=== PATIENT | male | born 1940 ===

== ENCOUNTER 2019-03-05 05:49 | Day surgery (SDC) | payer OTHER ==
[~2019-03-05 05:49] MED LIST: CLONAZEPAM0.5 MG/TAB PO; ISOSORBIDE DINI30 MG PO; NORVASC2.5 M1 PO; PLAVIX75 MG PO; PREDNICARBATE PO; REQUIP1 MG PO; REVATIO20 MG PO; STIOLTO; ZANTAC300 MG PO; ZOCOR40 MG PO
== END 2019-03-05 10:15 | disposition home or self-care (01) ==
LOC: AMB-ENDOS 05:49
DX: D12.0 Benign neoplasm of cecum (principal); D12.2 Benign neoplasm of ascending colon; D12.5 Benign neoplasm of sigmoid colon; D12.8 Benign neoplasm of rectum